=== PATIENT | male | born 1950 | race Caucasian/White ===

== ENCOUNTER 2016-11-17 21:42 | Inpatient (IN) | payer MEDICARE, BC ==
--- NOTE | ~2016-11-17 | CN ---
Consultation Report [facility] [address] [place]. [address] NAME: PEDRO LUIS JASSO : 52 STATUS : ADM IN [facility]#: [id number] AGE: 66 ADM/REG DATE : 11/18/16 MR#: [id number] REPORT SERV DATE: 11/20/16 DICTATED BY: DAYNA LOPEZ DATE: 11/20/16 REPORT STATUS : Draft TRANSCRIBED BY: MODL DATE: 11/20/16 CONSULT DATE OF CONSULTATION: 11/20/2016 REASON FOR CONSULT: Postoperative hyperglycemia. HISTORY OF PRESENT ILLNESS: The patient is a 66-year-old male, who is status post coronary artery bypass grafting. I am consulted for postoperative hyperglycemia. The patient currently on the floor. He denies any chest pain or shortness of breath. He is complaining of postsurgical site pain. There is no history of diabetes in the past and there is no family history of diabetes. PAST MEDICAL HISTORY: His past medical history is known for history of hypertension, hyperlipidemia, history of tobacco use, ischemic cardiomyopathy with ejection fraction 40%, and obesity. SOCIAL HISTORY: He lives at home with his . Functions independently. He denies drinking alcohol. No drugs. He is a smoker, recently quit. FAMILY HISTORY: No history of coronary artery disease in the past. Positive for hypertension on both sides. HOME MEDICATIONS: Xanax 0.5 mg daily as needed, aspirin 81 mg daily, Lipitor 40 mg daily, clobetasol cream topically p.r.n., ibuprofen 200 to 400 for pain as needed, Toprol-XL 50 mg daily, naproxen 220 daily p.r.n., nitroglycerin as needed, nitroglycerin patch daily p.r.n., omeprazole 20 mg p.r.n., Ranexa 1000 mg daily. ALLERGIES: THERE IS NO ANY KNOWN DRUG ALLERGY. REVIEW OF SYSTEMS: All 14-point review of systems done and negative, except what is stated in the history of present illness. PHYSICAL EXAMINATION: GENERAL: Well-nourished, well-developed male, not in acute distress. Resting quietly. VITAL SIGNS: Blood pressure 119/62, temperature 98.3, heart rate 104, respiratory rate 20, oxygen saturation 98 on room air. HEENT: Head atraumatic, normocephalic. Conjunctivae clear. Pupils are equal and reactive to light and accommodation. Extraocular muscles are intact. NECK: Supple. Trachea is midline. No supraclavicular or cervical lymphadenopathy. LUNGS: Diminished breath sounds bilaterally. Decreased respiratory effort. CARDIOVASCULAR SYSTEM: Regular rate and rhythm. Point of maximal impulse not displaced. ABDOMEN: Soft, nontender, nondistended. Positive normoactive bowel sounds. Consultation Report [address] [place]. [address] NAME: PEDRO LUIS JASSO : 52 STATUS : ADM IN [facility]#: [id number] AGE: 66 ADM/REG DATE : 11/18/16 MR#: [id number] REPORT SERV DATE: 11/20/16 DICTATED BY: DAYNA LOPEZ DATE: 11/20/16 REPORT STATUS : Draft TRANSCRIBED BY: MURTAZA DATE: 11/20/16 EXTREMITIES: No clubbing, cyanosis, or edema. SKIN: Normal color and turgor. PSYCHIATRIC: Normal mood and affect. LABORATORY RESULTS: Blood sugars were 136, 143, 111, 104, 97. Sodium 140, potassium 4.1, chloride 110, carbon dioxide 20, BUN 12, creatinine 0.93, blood sugar 97. White count 16.5, hemoglobin 12.1, hematocrit 34, platelet count 191. Hemoglobin A1c was 5.2. ASSESSMENT AND PLAN: 1. This is a very pleasant 66-year-old male, status post coronary artery bypass grafting. I am consulted for postoperative hyperglycemia. The patient does not have diabetes. His hemoglobin A1c 5.2. His hyperglycemia is related just to his surgery and we expect his blood sugar to normalized within several days. He initially after surgery was on the insulin drip and he required from 7 to 9 units and for the last 2 hours, he required only 3 units hourly and then insulin drip was discontinued since sugar became 97. We will give him one dose of Levemir 10 units at bedtime and we will start him on NovoLog level 2 sliding scale. We will check his blood sugar tomorrow. 2. Obesity. MG/MODL Dayna Lopez M.D. / [id number] CC: Sergo Puga MD
--- NOTE | ~2016-11-17 | OP ---
Record Of Operation [facility] [address] [place]. [address] NAME: PEDRO LUIS JASSO : 52 STATUS : ADM IN PAT#: [id number] AGE: 66 ADM/REG DATE : 11/18/16 MR#: [id number] REPORT SERV DATE: 11/20/16 DICTATED BY: RAMONITA CHILD DATE: 11/20/16 REPORT STATUS : Draft TRANSCRIBED BY: MODL DATE: 11/20/16 DATE OF PROCEDURE: 11/19/2016 PREOPERATIVE DIAGNOSES: 1. Coronary artery disease with unstable angina. 2. Hypertension. 3. Hypercholesterolemia. 4. Obesity. 5. Tobacco abuse. POSTOPERATIVE DIAGNOSES: 1. Coronary artery disease with unstable angina. 2. Hypertension. 3. Hypercholesterolemia. 4. Obesity. 5. Tobacco abuse. PROCEDURE PERFORMED: 1. Urgent coronary artery bypass grafting x4, left internal mammary artery placed to left anterior descending, reverse saphenous vein graft placed to first diagonal, reverse saphenous vein graft placed to the second obtuse marginal, reverse saphenous vein graft placed to the posterolateral branch vessel. 2. Endoscopic vein harvest, saphenous vein from right leg. 3. Transesophageal echocardiography. SURGEON: Ramonita Child M.D. ASSISTANTS: Kayla Gregory and Dustin Monzon. ANESTHESIA: General with Dr. Martinez and Dr. Rollins. HEMODIALYSIS CHARGE NURSE: Loc Mason M.D. INDICATIONS: This is a 66-year-old gentleman who has a history of coronary artery disease and previous cardiac catheterization seven years ago for chest discomfort. He had a completely occluded obtuse marginal vessel and right coronary artery. The patient's ventricular function was good. He was managed medically for two-vessel coronary artery disease. Unfortunately, he continued to have chest discomfort with increasing symptoms and referred back to Dr. Mason. Cardiac catheterization was repeated, and this demonstrated more severe coronary artery disease and a 65% mid LAD lesion. Echocardiography demonstrated mildly reduced ventricular function with EF of 40%. No surgically significant valvular dysfunction. We were asked to see the patient for possible coronary artery bypass grafting. We discussed the operation with the patient's . The patient continues to smoke 1 to 2 or 3 to 4, or 5 cigarettes per day. After lengthy discussion of operations, its indication and risks, he wished to proceed. [facility] predicted Record Of Operation [facility] [address] [place]. [address] NAME: PEDRO LUIS JASSO : 52 STATUS : ADM IN PAT#: [id number] AGE: 66 ADM/REG DATE : 11/18/16 MR#: [id number] REPORT SERV DATE: 11/20/16 DICTATED BY: RAMONITA CHILD DATE: 11/20/16 REPORT STATUS : Draft TRANSCRIBED BY: MODL DATE: 11/20/16 mortality of less than 2%, morbidity mortality less than 10% were shared with the family. FINDINGS AT OPERATION: 1. Cross-clamp time 72 minutes. Total pump time 97 minutes. 2. LAD was 2 mm and mildly diseased vessel. A 3 mm CRUZ was anastomosed to it with good runoff. 3. Diagonal vessel was 1.75 mm and mildly diseased. A 4 mm RSVG was anastomosed to it with good runoff. 4. The second obtuse marginal was 1.5 mm and heavily diseased. A 4 mm RSVG was anastomosed to it with good runoff. 5. The posterolateral branch vessel was 1.75 mm and heavily diseased. A 4 mm RSVG was anastomosed it. Runoff was felt to be not good. 6. The vein quality was good. All grafts had good Doppler signal at the end of the case. 7. Transesophageal echocardiogram at the end of the operation demonstrated good ventricular function with no surgically significant valvular disease. PATHOLOGIC SPECIMENS: None. DESCRIPTION OF PROCEDURE: The patient was brought to the operating suite. General anesthesia was induced. Airway was secured with an endotracheal tube. Lines were secured by Anesthesia. Lee catheter was placed. The patient's chest, abdomen, groin, and legs were prepped with Hibiclens and ChloraPrep and draped with Ioban sterile sheets. KEREN probe was placed by Dr. Martinez and examination carried out in my attendance as discussed above. Saphenous vein was harvested from the right leg using endoscopic technique. Briefly, the vein was cut directly down upon through a 2 cm incision placed medial aspect of the right knee. Then, using VasoView trocars, the vessel was dissected from the surrounding subcutaneous tissue and fat. The side branches were identified, ligated, divided with cautery. Once adequate length of vein had been dissected, a counter incision made up in the groin and in the lower portion of the leg, where the vein was ligated, divided, and brought out through the knee incision. The vein quality was good and the leg was made hemostatic and closed in layers of absorbable suture and skin closed subcuticular fashion. Then, a midline sternal incision was made and the sternum was opened with a saw. The left hemithorax was elevated and the endothoracic fascia was incised. The side branches of the DORA were clipped and divided. Once the DORA was completely dissected, the patient was anticoagulated with heparin. The chest tube was placed in the left pleural cavity. The DORA was clipped and divided distally. There was good flow through the DORA and its pedicle was infiltrated with papaverine. Next, a Darrin retractor was placed in the pericardium over from the innominate vein. The diaphragm was T'd and tacked to the side of the chest wall. Cannulation pursestring sutures were placed and cannulation was carried out in routine manner. A retrograde cardioplegia cannula was placed in the coronary sinus. When all was in readiness, the patient was placed on cardiopulmonary bypass. Distal targets were marked out on the heart as described in the findings. Then, a heart support was placed Record Of Operation [address] [address] NAME: PEDRO LUIS JASSO : 52 STATUS : ADM IN [facility]#: [id number] AGE: 66 ADM/REG DATE : 11/18/16 MR#: [id number] REPORT SERV DATE: 11/20/16 DICTATED BY: RAMONITA CHILD DATE: 11/20/16 REPORT STATUS : Draft TRANSCRIBED BY: MODL DATE: 11/20/16 and the aorta was crossclamped. Initial dose cold blood cardioplegia solution was given in a combination of antegrade and retrograde fashion, then in a retrograde manner following proximal anastomoses. Following the first dose cardioplegia, the heart was positioned for the diagonal graft. Arteriotomy was made. The vein graft was trimmed and anastomosed to it with 7-0 Prolene. The vein graft was measured to the left side of the ascending aorta where it was divided. We then positioned the heart for the second obtuse marginal graft. Arteriotomy was made in this chronically occluded vessel. The vein was brought to the field and trimmed and anastomosed to it with a running suture of 7-0 Prolene. This vein graft was measured back to the left side of the ascending aorta, where it was divided. Next, proximal ends of the two vein grafts were anastomosed to 4.5 mm punch aortotomies with 6-0 Prolene. Another dose of cardioplegia was given. We positioned the heart for the posterolateral branch graft. The PDA takeoff was small. Arteriotomy was made. The vein graft was trimmed and anastomosed to it with 7-0 Prolene. The vein graft was measured to the right side of the ascending aorta where it was divided and anastomosed to a 4.5 mm punch aortotomy with 6-0 Prolene. The heart was then positioned for the LAD graft. Arteriotomy was made in the mid LAD. The DORA was brought out the left chest through a notch in the pericardium. A 2 mm probe could not pass into the proximal portion of the LAD through the arteriotomy site suggesting more severe stenosis than indicated on catheterization. The DORA was opened and anastomosed to the LAD with running suture of 8-0 Prolene. The endothoracic fascia was tacked to the epicardium. The patient was placed in Trendelenburg and final dose of warm blood cardioplegia was given in a retrograde fashion. Ventricular and atrial pacing wires were placed. Following the last dose of cardioplegia and deairing of the aorta, the aortic cross clamp was removed. The distal and proximal anastomoses were inspected and made hemostatic. Doppler demonstrated good flow through the graft. The heart resumed a normal sinus rhythm spontaneously, it was slow and was paced atrially at a rate of 80. Ventilation was begun. When the heart demonstrated good contractility, it was allowed to fill and eject. When deairing was completed, the patient was taken out of Trendelenburg. The ascending aortic vent removed and these pursestring sutures tied and reinforced. The patient was weaned from cardiopulmonary bypass with minimal inotropic support. The venous cannula was removed and these pursestring sutures were tied. KEREN examination demonstrated good ventricular function with no significant valvular pathology. Protamine was administered by Anesthesia and following a period of hemodynamic stability, the aortic cannula was removed and the pursestring sutures tied and reinforced. The patient continued do well and chest irrigated copiously with saline. Meticulous hemostasis was obtained. Hemasorb was placed along the cut edge of the sternum. Once hemostasis was assured, the pericardium was draped over the anterior surface of heart and tacked into position. Doppler demonstrated good flow through the grafts following protamine administration. Then, chest tubes were placed and sternum reapproximated with eight sternal wires. The clavipectoral fascia and linea alba closed with #1 StrataFix, subcutaneous Record Of Operation [facility] [id number] [place]. [address] NAME: PEDRO LUIS JASSO : 52 STATUS : ADM IN PAT#: [id number] AGE: 66 ADM/REG DATE : 11/18/16 MR#: [id number] REPORT SERV DATE: 11/20/16 DICTATED BY: RAMONITA CHILD DATE: 11/20/16 REPORT STATUS : Draft TRANSCRIBED BY: MODL DATE: 11/20/16 tissue closed to #2-0 StrataFix and skin closed with subcuticular fashion. The patient tolerated the procedure well. There were no complications. Sponge and needle counts were correct. DISPOSITION: The patient left intubated, sedated, and transported to the intensive care unit in stable condition. NIKOLAS/MURTAZA Ramonita Child M.D. / [id number] CC: MD Felix Rodriguez M.D. Van Stephen Monroe Jr., M.D.
--- NOTE | ~2016-11-17 | HP ---
History And Physical [facility] [address] [place]. [address] NAME: PEDRO LUIS JASSO : 52 STATUS : ADM IN [facility]#: [id number] AGE: 66 ADM/REG DATE : 11/18/16 MR#: [id number] REPORT SERV DATE: 11/18/16 DICTATED BY: SERGO PEREZ DATE: 11/18/16 REPORT STATUS : Draft TRANSCRIBED BY: MODL DATE: 11/18/16 DATE OF ADMISSION: 11/17/2016 REASON FOR ADMISSION: Syncope, worsening angina. HISTORY OF PRESENT ILLNESS: Mr. Jasso is a very pleasant 66-year-old gentleman with a history of hypertension, hyperlipidemia, tobacco smoking (recently quit), ischemic cardiomyopathy (LVEF 40%), and obesity, who presents to [facility] yesterday evening with syncopal episode that occurred in the afternoon at work. Per him and his , he had been in usual state of health up until yesterday afternoon when he got to work. While at work, he started to feel lightheaded. He then sat down and told his co-workers that he felt like he was going to pass out. He subsequently did pass out for approximately two minutes per his report. He had instructed his co-workers to call 911, if he passes, which he did. He states that, he has no other symptoms preceding this episode. He denied having any chest pain, palpitations, or pain anywhere for that matter. However, he has had worsening angina over the past three or four weeks since in September. His angina is now more frequent and lasting longer. He has been taking his medications without any issue. PAST MEDICAL HISTORY: As above. SOCIAL HISTORY: The patient lives at home with his . He functions independently in normal circumstances. He denies drinking alcohol, doing drugs, or currently smoking (recently quit). FAMILY HISTORY: Noncontributory for premature cardiovascular disease. ALLERGIES: NO KNOWN DRUG ALLERGIES. HOME MEDICATIONS: 1. Xanax. 2. Aspirin. 3. Lipitor. 4. Clobetasol. 5. Motrin. 6. Toprol-XL. 7. . 8. Nitrostat. 9. Nitro-Dur. 10.Prilosec. 11.Ranexa. REVIEW OF SYSTEMS: As above, all others systems otherwise negative. PHYSICAL EXAMINATION: VITAL SIGNS: Blood pressure 132/73, pulse 62, temperature 97.16. History And Physical [address] [address] NAME: PEDRO LUIS JASSO : 52 STATUS : ADM IN PAT#: [id number] AGE: 66 ADM/REG DATE : 11/18/16 MR#: [id number] REPORT SERV DATE: 11/18/16 DICTATED BY: SERGO PEREZ DATE: 11/18/16 REPORT STATUS : Draft TRANSCRIBED BY: MODSeth DATE: 11/18/16 GENERAL: Well developed, well nourished, no acute distress. NEURO: Awake, alert and oriented x3; no focal deficits, appropriate mood. HEENT: Moist mucous membranes, anicteric sclerae, no nasal discharge. NECK: No JVD, no carotid bruit. LUNGS: Clear to auscultation bilaterally, no wheezes, rales or rhonchi. CV: Regular rhythm, normal S1/S2, no murmurs, rubs or gallops. ABD: Soft, non-tender, non-distended, no rebound or guarding. EXT: No pitting edema, normal distal pulses. SKIN: Warm, dry and intact; no rash. PERTINENT TEST FINDINGS: Potassium 3.8, creatinine 1.07, magnesium 1.7. White blood cell count 10.4, hemoglobin 14.5. Troponin less than 0.02 x2. EKG with sinus rhythm. No ischemic ST/T changes. Telemetry with sinus rhythm and no arrhythmia events. IMPRESSION AND PLAN: Mr. Jasso is a pleasant 66-year-old gentleman with a history of ischemic cardiomyopathy, hypertension, hyperlipidemia, tobacco smoking, and coronary disease, awaiting elective CABG on 12/01/2015, who presents with a syncopal episode yesterday at 03:00 p.m. as well as escalating angina over the past three to four weeks. Despite his benign findings on labs, EKG, telemetry, and clinically at the present time, given syncope and worsening angina, I believe that he would do well with an expedited CABG at this point in time. Accordingly, I have discussed his case with Dr. Olvin Bhat, so that we may consider moving up his CABG at this point in time. Otherwise, I will continue his medications for his other medical problems, which are apparently stable at this point in time. OFELIA/MURTAZA Sergo Perez MD / [id number] CC: MD Felix Rodriguez M.D.
--- NOTE | ~2016-11-17 | DS ---
Discharge Summary [facility] [address] [place]. [address] NAME: PEDRO LUIS JASSO : 52 STATUS : DIS IN PAT#: [id number] AGE: 66 ADM/REG DATE : 11/18/16 MR#: [id number] REPORT SERV DATE: 12/02/16 DICTATED BY: RAMONITA CHILD DATE: 12/01/16 REPORT STATUS : Draft TRANSCRIBED BY: MODSeth DATE: 12/01/16 Data Collection from hospitalization DISCHARGE DIAGNOSES: 1. Syncope. 2. Acute coronary syndrome/angina. 3. Coronary artery disease, status post coronary artery bypass grafting. 4. Ischemic cardiomyopathy-ejection fraction 40-45%. 5. Hypertension. 6. Hyperlipidemia. 7. Chronic obstructive pulmonary disease. 8. Tobacco use-recently quit. CONSULTATIONS: Dr. Radha Lord, Dr. Sergo Puga. PROCEDURES PERFORMED: Urgent coronary artery bypass grafting x4 with CRUZ to the LAD, reverse saphenous vein graft placed to the first diagonal, reverse saphenous vein graft placed to the second obtuse marginal, reverse saphenous vein graft placed to the posterolateral branch vessel; endoscopic vein harvest saphenous vein from the right leg; transesophageal echocardiography, 11/19/2016. DISCHARGE MEDICATIONS: Xanax 0.5 mg daily as needed, vitamin C 1000 mg daily, aspirin 81 mg every morning, Lipitor 40 mg at bedtime, Temovate 1 application topically daily as needed, Lasix 20 mg daily as needed, [place] 5/325 one to two tablets every four hours as needed, Prinivil 2.5 mg at bedtime, Toprol-XL 50 mg every morning, Nitrostat 0.4 mg sublingually as needed, Prilosec 20 mg daily as needed, Orazinc 220 mg daily. CONDITION ON DISCHARGE: Stable. DISPOSITION: The patient was discharged home on a low-sodium, low-cholesterol, cardiac diet with activities as instructed. He would follow up with Olvin Bhat 01/27/2017. He would follow up with Dr. Mcdowell 01/24/2017. HOSPITAL COURSE: This is a 66-year-old man who has a history of hypertension, hyperlipidemia, tobacco smoking-recently quit, ischemic cardiomyopathy with left ventricular ejection fraction of 40%, and obesity who presented to [facility] with syncopal episode that occurred in the afternoon at work. According to the patient and his , he had been in his usual state of health up until that afternoon when he got to work. While at work, he started to feel lightheaded. He then sat down and told his coworkers that he felt like he was going to pass out. He subsequently did pass out for approximately two minutes. He had instructed his co-workers to call 911 if he passed out, which he did. He said that he had no other symptoms prior to that episode. He has had worsening angina over the past three to four weeks. His angina had become more frequent and lasting longer. He was seen by Dr. Sergo Puga. The patient said he had been taking his medications without any issues. Troponin was less than 0.02 x2. EKG revealed sinus rhythm. There were no ischemic ST-T changes. Telemetry revealed sinus rhythm and no arrhythmia event. He had undergone previous cardiac catheterization 7 years ago for chest discomfort. He had a completely occluded obtuse marginal vessel and right coronary artery. Ventricular function was good. Discharge Summary [address] [address] NAME: PEDRO LUIS JASSO : 52 STATUS : DIS IN PAT#: [id number] AGE: 66 ADM/REG DATE : 11/18/16 MR#: [id number] REPORT SERV DATE: 12/02/16 DICTATED BY: RAMONITA CHILD DATE: 12/01/16 REPORT STATUS : Draft TRANSCRIBED BY: MURTAZA DATE: 12/01/16 He was managed medically for two-vessel coronary artery disease. Repeat cardiac catheterization demonstrated more severe coronary artery disease and 65% mid LAD lesions. Echocardiography demonstrated mildly reduced ventricular function with ejection fraction of 40%. There was no surgically significant valvular dysfunction. It was felt the patient would need to undergo coronary artery bypass grafting. He was admitted to the hospital at this time for further evaluation and treatment. On the day following admission, he was taken to the operating room where he underwent the above-mentioned procedure. He tolerated this well, and there were no complications. On postop day 1, he had been extubated. He was up sitting in a chair. His chest x-ray was clear. Chest tube was going to be removed. Beta david was increased. Nitroglycerin paste was discontinued. He was seen in consultation by Dr. Radha Lord regarding postoperative hyperglycemia. There is no history of diabetes in the past. Hemoglobin A1c was 5.2. The patient does not have diabetes. His hyperglycemia was felt related to surgery. It was expected that his blood sugar would normalize within several days. He was going to be given a dose of Levemir, and then he would be started on level 2 NovoLog. Over the next couple of days, he had no complaints. His lungs remained clear. Chest tube was removed. We encouraged him to mobilize. His postoperative hyperglycemia had resolved. Discharge planning was performed. He was ambulatory. Heart rate and blood pressure were controlled. On 11/22/2016, he was doing well. He had no chest pain or shortness of breath. He had no edema. Discharge instructions were given. Due to his improved and stable condition, he was discharged home with the above-stated instructions. Information collected by: Nida Caldwell I submit the above information as my discharge summary. TG/MODL Ramonita Child M.D. / [id number] CC: Yandel Burton MD
[2016-11-17 19:28] LABS: BASOPHILS 0.1 %; BASOPHILS ABSOLUTE 0.01 10/3/uL (0.0-0.16); EOSINOPHILS 2.7 %; HEMATOCRIT 40.3 % (40.0-51.0); HEMOGLOBIN 14.5 g/dL (13.6-17.8); IMMATURE GRANULOCYTES 0.3 %; IMMATURE GRANULOCYTES ABSOLUTE 0.02 10/3/uL (0.0-0.11); LYMPHOCYTES 19.3 %; LYMPHOCYTES ABSOLUTE 1.42 10/3/uL (0.67-4.30); MEAN CORPUSCULAR VOLUME 97.3 fL (80-100); MEAN PLATELET VOLUME 10.4 fL (9.2-13.0); MONOCYTES ABSOLUTE 0.44 10/3/uL (0.21-1.20); NEUTROPHILS 71.6 %; NEUTROPHILS ABSOLUTE 5.27 10/3/uL (2.02-8.40); PLATELET COUNT 238 10/3/uL (150-400); RBC DISTRIBUTION WIDTH 12.4 % (12.0-16.0); RED CELL COUNT 4.14 10/6/uL (4.7-6.1); WHITE BLOOD CELLS 7.4 10/3/uL (4.5-10.5)
[2016-11-17 19:29] LABS: MANUAL DIFF NO %
[2016-11-17 19:34] LABS: ASCORBIC ACID (UR NOT ORDER) NEG (NEG); BILIRUBIN, URINE NEGATIVE (NEG); ER URINALYSIS TAT 0 Hrs 10 Mins; KETONE, URINE NEGATIVE (NEG); LEUKOCYTE ESTERASE(NOT OR NEG (NEG); NITRITE (URINE) NEG (NEG); WBC (NOT ORDERED) (RFLEX) < 1 (0-5)
[2016-11-17 19:36] LABS: PARTIAL THROMBO TIME 27.6 SEC (22.5-37.2); PROTIME (NOT ORD) 13.4 SEC (12.0-14.5)
[2016-11-17 19:56] LABS: BUN (BLOOD UREA NITROGEN) 14 MG/DL (6-23); CHLORIDE, SERUM 102 MMOL/L (96-112); CO2 (CARBON DIOXIDE) 27 MMOL/L (24-34); CREATININE 1.07 MG/DL (0.70-1.30); GFR AFRICAN AMERICAN 84 ML/MIN (>=60); GFR NON AFRICAN AMERICAN 72 ML/MIN (>=60); POTASSIUM, SERUM 3.8 MMOL/L (3.5-5.3); SODIUM, SERUM 138 MMOL/L (135-148); TROPONIN I <0.02 NG/ML (<0.05)
[2016-11-17 19:57] LABS: CALCIUM, SERUM 9.8 MG/DL (8.5-10.4); CHEST PAIN PROFILE TAT 0 Hrs 32 Mins; GLUCOSE, SERUM 180 MG/DL (60-99)
[~2016-11-17 21:42] MED LIST: ALEVE220 MG PO; ASA5GR PO; ASAB PO; ASABAYER PO; CLARIT10 PO; LIPITOR40 PO; LOP25 PO; METOPROLOL; NEXIUM40 PO; NITRO PATCH TOP; NITROII10C TOP; NITROSTAT0.4 MG SL; NORV5 PO; RANEXA1000 MG PO; RELA5 PO; TOPXL50 PO; UNK MED; X25 PO; ZOCOR20 PO
[2016-11-17] MEDS ORDERED: NITROII10C TOP (22:53)
[2016-11-17] MEDS ORDERED: TEMOVATE CREAM30 GM TOP (22:53)
[2016-11-17] MEDS ORDERED: LIPITOR40 PO (22:54)
[2016-11-17] MEDS ORDERED: NITROSTAT0.4 MG SL (22:54)
[2016-11-17] MEDS ORDERED: TOPXL50 PO (22:54)
[2016-11-17] MEDS ORDERED: X5 PO (22:57)
[2016-11-17] MEDS ORDERED: ALEVE220 MG PO (22:57)
[2016-11-17] MEDS ORDERED: PRILOSEC OTC20 MG PO (22:58)
[2016-11-17] MEDS ORDERED: MOTRIN IB200 MG PO (22:58)
[2016-11-17] MEDS ORDERED: RANEXA1000 MG PO (22:58)
[2016-11-17] MEDS ORDERED: ASAB PO (22:58)
[2016-11-19 04:49] LABS: BASOPHILS 0.4 %; BASOPHILS ABSOLUTE 0.03 10/3/uL (0.0-0.16); EOSINOPHILS 4.4 %; EOSINOPHILS ABSOLUTE 0.36 10/3/uL (0.0-0.53); HEMATOCRIT 39.2 % (40.0-51.0); HEMOGLOBIN 13.9 g/dL (13.6-17.8); IMMATURE GRANULOCYTES 0.1 %; IMMATURE GRANULOCYTES ABSOLUTE 0.01 10/3/uL (0.0-0.11); LYMPHOCYTES 35.6 %; LYMPHOCYTES ABSOLUTE 2.88 10/3/uL (0.67-4.30); MEAN CORPUS HGB CONC 35.5 g/dL (32.0-36.0); MEAN CORPUSCULAR HEMOGLOB 34.5 pg (26.0-34.0); MEAN CORPUSCULAR VOLUME 97.3 fL (80-100); MEAN PLATELET VOLUME 10.2 fL (9.2-13.0); MONOCYTES 13.7 %; MONOCYTES ABSOLUTE 1.11 10/3/uL (0.21-1.20); NEUTROPHILS 45.8 %; NEUTROPHILS ABSOLUTE 3.71 10/3/uL (2.02-8.40); PLATELET COUNT 219 10/3/uL (150-400); RBC DISTRIBUTION WIDTH 12.6 % (12.0-16.0); RED CELL COUNT 4.03 10/6/uL (4.7-6.1); WHITE BLOOD CELLS 8.1 10/3/uL (4.5-10.5)
[2016-11-19 04:50] LABS: MANUAL DIFF NO %
[2016-11-19 05:03] LABS: BUN (BLOOD UREA NITROGEN) 14 MG/DL (6-23); CALCIUM, SERUM 8.9 MG/DL (8.5-10.4); CHLORIDE, SERUM 108 MMOL/L (96-112); CO2 (CARBON DIOXIDE) 26 MMOL/L (24-34); CREATININE 1.03 MG/DL (0.70-1.30); GFR AFRICAN AMERICAN 88 ML/MIN (>=60); GFR NON AFRICAN AMERICAN 76 ML/MIN (>=60); SODIUM, SERUM 141 MMOL/L (135-148)
[2016-11-19 05:17] LABS: GLUCOSE, SERUM 91 MG/DL (60-99)
[2016-11-19 05:37] LABS: ALBUMIN 3.3 G/DL (3.5-5.0); ALKALINE PHOSPHATASE 61 U/L (45-117); GLOBULIN 3.4 G/DL (2.5-4.1); SGOT(AST) 22 U/L (5-40); SGPT(ALT) 29 U/L (5-65); TOTAL BILIRUBIN 0.4 MG/DL (0-1.2); TOTAL PROTEIN 6.7 G/DL (6.0-8.5)
[2016-11-19 05:56] LABS: PROTIME (NOT ORD) 13.5 SEC (12.0-14.5)
[2016-11-19 05:57] LABS: % IRON SAT 46 % (20-50); IRON BINDING CAPACITY 228 MCG/DL (250-450); IRON, SERUM 105 MCG/DL (35-150)
[2016-11-19 18:04] LABS: BE (BASE EXCESS) -2.9 MEQ/L (0 +/- 2.5); CARBOXYHEMOGLOBIN 0.3 % (0-3); HEMOBLOGIN CONTENT 13.8 G/DL (14-18); INSTRUMENT SERIAL # 11843; METHEMOGLOBIN 0.5 % (0-3); MODE SIMV; OPERATOR ID 35188; PCO2 (CO2 TENSION) 39 MMHG (35-45); PO2 (O2 TENSION) 133 MMHG (79-93); SAMPLE Arterial; TIDAL VOLUME 700 ML; pH 7.37 (7.37-7.43)
[2016-11-19 18:19] LABS: HEMATOCRIT 36.5 % (40.0-51.0); HEMOGLOBIN 13.1 g/dL (13.6-17.8); PLATELET COUNT 184 10/3/uL (150-400)
[2016-11-19 18:30] LABS: BUN (BLOOD UREA NITROGEN) 11 MG/DL (6-23); CALCIUM, SERUM 8.8 MG/DL (8.5-10.4); CHLORIDE, SERUM 113 MMOL/L (96-112); CO2 (CARBON DIOXIDE) 23 MMOL/L (24-34); CREATININE 1.09 MG/DL (0.70-1.30); GFR AFRICAN AMERICAN 82 ML/MIN (>=60); GFR NON AFRICAN AMERICAN 71 ML/MIN (>=60); GLUCOSE, SERUM 107 MG/DL (60-99); POTASSIUM, SERUM 3.9 MMOL/L (3.5-5.3); SODIUM, SERUM 144 MMOL/L (135-148)
[2016-11-19 18:33] LABS: INTERNATIONAL NORMAL RATI 1.2 UNITS (-); PROTIME (NOT ORD) 15.5 SEC (12.0-14.5)
[2016-11-19 18:34] LABS: PARTIAL THROMBO TIME 32.6 SEC (22.5-37.2)
[2016-11-19 23:48] LABS: BE (BASE EXCESS) -4.7 MEQ/L (0 +/- 2.5); CARBOXYHEMOGLOBIN 0.3 % (0-3); DEVICE NC; HCO3 (ACTUAL BICARBONATE) 19.6 MEQ/L (23-27); HEMOBLOGIN CONTENT 13.3 G/DL (14-18); INSTRUMENT SERIAL # 11843; METHEMOGLOBIN 0.3 % (0-3); O2 CONTENT 17.8 VOL% (18-24); OPERATOR ID 32193; PCO2 (CO2 TENSION) 34 MMHG (35-45); PO2 (O2 TENSION) 87 MMHG (79-93); SAMPLE Arterial; pH 7.38 (7.37-7.43)
[2016-11-20 00:01] LABS: HEMATOCRIT 35.7 % (40.0-51.0); HEMOGLOBIN 12.7 g/dL (13.6-17.8)
[2016-11-20 00:09] LABS: CALCIUM, SERUM 8.8 MG/DL (8.5-10.4); POTASSIUM, SERUM 4.2 MMOL/L (3.5-5.3)
[2016-11-20 04:47] LABS: BASOPHILS 0 %; EOSINOPHILS 0 %; HEMOGLOBIN 12.1 g/dL (13.6-17.8); IMMATURE GRANULOCYTES 0.3 %; IMMATURE GRANULOCYTES ABSOLUTE 0.05 10/3/uL (0.0-0.11); LYMPHOCYTES 3.9 %; LYMPHOCYTES ABSOLUTE 0.65 10/3/uL (0.67-4.30); MEAN CORPUS HGB CONC 35.6 g/dL (32.0-36.0); MEAN CORPUSCULAR HEMOGLOB 34.4 pg (26.0-34.0); MEAN CORPUSCULAR VOLUME 96.6 fL (80-100); MEAN PLATELET VOLUME 10.6 fL (9.2-13.0); MONOCYTES 7.7 %; MONOCYTES ABSOLUTE 1.27 10/3/uL (0.21-1.20); NEUTROPHILS 88.1 %; NEUTROPHILS ABSOLUTE 14.54 10/3/uL (2.02-8.40); PLATELET COUNT 191 10/3/uL (150-400); RBC DISTRIBUTION WIDTH 12.6 % (12.0-16.0); RED CELL COUNT 3.52 10/6/uL (4.7-6.1)
[2016-11-20 04:48] LABS: MANUAL DIFF NO %; WHITE BLOOD CELLS 16.5 10/3/uL (4.5-10.5)
[2016-11-20 04:53] LABS: INTERNATIONAL NORMAL RATI 1.2 UNITS (-); PROTIME (NOT ORD) 14.9 SEC (12.0-14.5)
[2016-11-20 05:01] LABS: BUN (BLOOD UREA NITROGEN) 12 MG/DL (6-23); CALCIUM, SERUM 8.6 MG/DL (8.5-10.4); CHLORIDE, SERUM 110 MMOL/L (96-112); CO2 (CARBON DIOXIDE) 20 MMOL/L (24-34); CREATININE 0.93 MG/DL (0.70-1.30); GFR AFRICAN AMERICAN 99 ML/MIN (>=60); GFR NON AFRICAN AMERICAN 86 ML/MIN (>=60); GLUCOSE, SERUM 97 MG/DL (60-99); POTASSIUM, SERUM 4.1 MMOL/L (3.5-5.3); SODIUM, SERUM 140 MMOL/L (135-148)
[2016-11-21 04:14] LABS: BASOPHILS 0.1 %; BASOPHILS ABSOLUTE 0.01 10/3/uL (0.0-0.16); EOSINOPHILS 0 %; HEMATOCRIT 33.8 % (40.0-51.0); HEMOGLOBIN 11.8 g/dL (13.6-17.8); IMMATURE GRANULOCYTES 0.5 %; IMMATURE GRANULOCYTES ABSOLUTE 0.09 10/3/uL (0.0-0.11); LYMPHOCYTES 11.6 %; LYMPHOCYTES ABSOLUTE 2.18 10/3/uL (0.67-4.30); MEAN CORPUS HGB CONC 34.9 g/dL (32.0-36.0); MEAN CORPUSCULAR HEMOGLOB 34.5 pg (26.0-34.0); MEAN CORPUSCULAR VOLUME 98.8 fL (80-100); MEAN PLATELET VOLUME 9.9 fL (9.2-13.0); MONOCYTES 16.7 %; MONOCYTES ABSOLUTE 3.13 10/3/uL (0.21-1.20); NEUTROPHILS 71.1 %; NEUTROPHILS ABSOLUTE 13.33 10/3/uL (2.02-8.40); PLATELET COUNT 191 10/3/uL (150-400); RBC DISTRIBUTION WIDTH 12.9 % (12.0-16.0); RED CELL COUNT 3.42 10/6/uL (4.7-6.1); WHITE BLOOD CELLS 18.7 10/3/uL (4.5-10.5)
[2016-11-21 04:22] LABS: MANUAL DIFF NO %
[2016-11-21 04:24] LABS: CALCIUM, SERUM 8.7 MG/DL (8.5-10.4); CHLORIDE, SERUM 109 MMOL/L (96-112); CO2 (CARBON DIOXIDE) 23 MMOL/L (24-34); CREATININE 0.96 MG/DL (0.70-1.30); GFR AFRICAN AMERICAN 96 ML/MIN (>=60); GFR NON AFRICAN AMERICAN 83 ML/MIN (>=60); GLUCOSE, SERUM 113 MG/DL (60-99); POTASSIUM, SERUM 4.4 MMOL/L (3.5-5.3); SODIUM, SERUM 139 MMOL/L (135-148)
[2016-11-21 04:28] LABS: BUN (BLOOD UREA NITROGEN) 16 MG/DL (6-23)
[2016-11-22 05:20] LABS: BASOPHILS 0.1 %; BASOPHILS ABSOLUTE 0.01 10/3/uL (0.0-0.16); EOSINOPHILS 0.5 %; EOSINOPHILS ABSOLUTE 0.07 10/3/uL (0.0-0.53); HEMATOCRIT 34.7 % (40.0-51.0); IMMATURE GRANULOCYTES 0.4 %; IMMATURE GRANULOCYTES ABSOLUTE 0.05 10/3/uL (0.0-0.11); LYMPHOCYTES 24.7 %; LYMPHOCYTES ABSOLUTE 3.26 10/3/uL (0.67-4.30); MEAN CORPUS HGB CONC 34.6 g/dL (32.0-36.0); MEAN CORPUSCULAR HEMOGLOB 34.4 pg (26.0-34.0); MEAN CORPUSCULAR VOLUME 99.4 fL (80-100); MONOCYTES 16.4 %; MONOCYTES ABSOLUTE 2.16 10/3/uL (0.21-1.20); NEUTROPHILS 57.9 %; NEUTROPHILS ABSOLUTE 7.65 10/3/uL (2.02-8.40); PLATELET COUNT 192 10/3/uL (150-400); RBC DISTRIBUTION WIDTH 12.8 % (12.0-16.0); RED CELL COUNT 3.49 10/6/uL (4.7-6.1); WHITE BLOOD CELLS 13.2 10/3/uL (4.5-10.5)
[2016-11-22 05:24] LABS: MANUAL DIFF NO %
[2016-11-22 05:27] LABS: BUN (BLOOD UREA NITROGEN) 16 MG/DL (6-23); CALCIUM, SERUM 8.3 MG/DL (8.5-10.4); CHLORIDE, SERUM 108 MMOL/L (96-112); CO2 (CARBON DIOXIDE) 22 MMOL/L (24-34); CREATININE 0.79 MG/DL (0.70-1.30); GFR AFRICAN AMERICAN 109 ML/MIN (>=60); GFR NON AFRICAN AMERICAN 94 ML/MIN (>=60); GLUCOSE, SERUM 100 MG/DL (60-99); PHOSPHORUS, SERUM 2.1 MG/DL (2.5-4.5); POTASSIUM, SERUM 4.1 MMOL/L (3.5-5.3); SODIUM, SERUM 140 MMOL/L (135-148)
[2016-11-22] MEDS ORDERED: VITC500 PO (10:02)
[2016-11-22] MEDS ORDERED: ZINC220C PO (10:03)
[2016-11-22] MEDS ORDERED: PRIN2.5 PO (10:06)
[2016-11-22] MEDS ORDERED: L20 PO (10:07)
[2016-11-22] MEDS ORDERED: NORCO1 TA1 PO (10:09)
== END 2016-11-22 12:30 | disposition home or self-care (01) | DRG 236 ==
LOC: ER 21:42 → CDU1 21:57 → SDC/OF 11-19 06:46 → CVICU 11-19 17:13 → 5NO 11-20 15:58
PROVIDERS: Emergency Medicine; Internal Medicine Cardiovascular Disease; Nurse Practitioner Family; Student in an Organized Health Care Education/Training Program; Thoracic Surgery (Cardiothoracic Vascular Surgery)
DX: I25.110 Atherosclerotic heart disease of native coronary artery with unstable angina pectoris (principal); J44.9 Chronic obstructive pulmonary disease, unspecified; I10 Essential (primary) hypertension; E78.00 Pure hypercholesterolemia, unspecified; F17.210 Nicotine dependence, cigarettes, uncomplicated; E66.9 Obesity, unspecified; Z68.29 Body mass index [BMI] 29.0-29.9, adult; R73.9 Hyperglycemia, unspecified; I25.5 Ischemic cardiomyopathy
CPT/HCPCS: 31720; 36415; 71010; 71020; 80048; 80053; 81001; 82310; 82330; 82803; 82805; 82947; 82962; 83036; 83540; 83550; 83735; 84100; 84132; 84295; 84484; 85014; 85018; 85025; 85049; 85347; 85610; 85730; 86850; 86900; 86901; 86920; 87641; 93005; 93312; 93320; 93325; 94002; 94640; 94660; 94770; 99285; A9270-GY; C1713; C1769; J0690; J1644; J2150; J2250; J2370; J2440; J2720; J2795; J2930; J3010; J3475; J3480; P9045; P9047